=== PATIENT | male | born 1965 | race Caucasian/White ===

== ENCOUNTER → 2019-10-31 | Outpatient (CLI) | payer BC ==
[2019-10-31 09:54] LABS: HEMATOCRIT 48.3 % (37.9-51.0); HEMOGLOBIN 16.4 g/dL (13.5-17.0); MEAN CORPUSCULAR HEMOGLOBIN 31.3 pg (27.0-33.4); MEAN CORPUSCULAR HGB CONC 34.1 g/dL (32.0-36.0); MEAN CORPUSCULAR VOLUME 92 fl (80-97); PLATELET COUNT 183 10^3/uL (150-450); RED BLOOD COUNT 5.25 10^6/uL (4.35-5.55); RED CELL DISTRIBUTION WIDTH 13.3 % (11.5-14.0); WHITE BLOOD COUNT 4.2 10^3/uL (4.0-10.5)
[2019-10-31 10:15] LABS: ALBUMIN 4.4 g/dL (3.5-5.0); ALKALINE PHOSPHATASE 88 U/L (38-126); ANION GAP 8 (5-19); ASPARTATE AMINO TRANSFERASE 25 U/L (17-59); BILIRUBIN,DIRECT 0.1 mg/dL (0.0-0.4); BILIRUBIN,TOTAL 0.5 mg/dL (0.2-1.3); BLOOD UREA NITROGEN 13 mg/dL (7-20); CALCIUM 9.3 mg/dL (8.4-10.2); CARBON DIOXIDE 30 mmol/L (22-30); CHLORIDE 103 mmol/L (98-107); CHOLESTEROL 137.14 mg/dL (0-200); GLUCOSE 104 mg/dL (75-110); POTASSIUM 4.4 mmol/L (3.6-5.0); TOTAL PROTEIN 7.3 g/dL (6.3-8.2); TRIGLYCERIDES 80 mg/dL (<150)
[2019-10-31 10:26] LABS: DIRECT LDL 86 mg/dL (<100)
== END ==
LOC: OD 09:08
PROVIDERS: ATTEND Physician Assistant
DX: I10 Essential (primary) hypertension (principal); R01.1 Cardiac murmur, unspecified; Z13.220 Encounter for screening for lipoid disorders
CPT/HCPCS: 36415; 80048; 80061; 80076; 83735; 84443; 85027

== ENCOUNTER → 2019-12-08 | Outpatient (CLI) | payer BC ==
[2019-12-08 10:16] LABS: ANION GAP 10 (5-19); BLOOD UREA NITROGEN 16 mg/dL (7-20); CALCIUM 9.5 mg/dL (8.4-10.2); CARBON DIOXIDE 28 mmol/L (22-30); CHLORIDE 101 mmol/L (98-107); GLUCOSE 98 mg/dL (75-110); POTASSIUM 4.4 mmol/L (3.6-5.0)
== END ==
LOC: OD 08:47
PROVIDERS: ATTEND Internal Medicine Cardiovascular Disease
DX: I10 Essential (primary) hypertension (principal); Z79.899 Other long term (current) drug therapy
CPT/HCPCS: 36415; 80048

== ENCOUNTER → 2020-12-20 | Outpatient (CLI) | payer BC ==
[2020-12-20 10:32] LABS: ANION GAP 5 (5-19); BLOOD UREA NITROGEN 12 mg/dL (7-20); CALCIUM 9.1 mg/dL (8.4-10.2); CARBON DIOXIDE 30 mmol/L (22-30); CHLORIDE 103 mmol/L (98-107); CHOLESTEROL 153.78 mg/dL (0-200); GLUCOSE 99 mg/dL (75-110); POTASSIUM 4.5 mmol/L (3.6-5.0); TRIGLYCERIDES 105 mg/dL (<150)
[2020-12-20 10:43] LABS: DIRECT LDL 98 mg/dL (<100)
== END ==
LOC: OD 09:03
PROVIDERS: ATTEND Physician Assistant
DX: I10 Essential (primary) hypertension (principal); I77.810 Thoracic aortic ectasia; E78.5 Hyperlipidemia, unspecified; Z79.899 Other long term (current) drug therapy
CPT/HCPCS: 36415; 80048; 80061